=== PATIENT | female | born 1965 | race Caucasian/White ===

== ENCOUNTER 2017-02-21 18:08 | Emergency (ER) | payer OTHER ==
[~2017-02-21] VITALS: Ht 144.8 cm; Wt 81.2 kg
--- NOTE | 2017-02-21 18:42 | RADIOLOGY REPORT ---
EXAMINATION: XR ANKLE, RIGHT CLINICAL INFORMATION: Evaluate for fracture. Pain. COMPARISON: X-ray dated 11/02/2012 TECHNIQUE: AP, lateral, and mortise views of the right ankle. FINDINGS: Normal bony mineralization. No definite evidence of acute fracture or dislocation. Small ossific/calcific densities noted adjacent to the medial malleolus represents an interval change. Mild degenerative changes medial ankle joint. Ankle mortise is preserved. Soft tissue swelling surrounding the ankle joint notably lateral aspect. IMPRESSION: No acute osseous abnormality. Soft tissue swelling notably lateral ankle. Ossific/calcific densities adjacent to the medial malleolus represents an interval change.
--- NOTE | 2017-02-21 20:27 | ED ANKLE/FOOT INJURY COMPLAINT ---
History of Present Illness General Chief Complaint: Foot or Ankle Injury Stated Complaint: R ANKLE INJURY Source: patient Exam Limitations: no limitations Vital Signs & Intake/Output Vital Signs & Intake/Output Vital Signs Date Time Temp Pulse Resp B/P B/P Pulse O2 O2 Flow FiO2 Mean Ox Delivery Rate 02/21 1814 97.6 97 15 172/100 97 Room Air Room Air Allergies Coded Allergies: MDX - Levofloxacin (From [facility]) (SWOLLEN, +VOMITING 02/21/17) Reconcile Medications Metformin HCl 500 MG TABLET 1 TAB PO BID DIABETES (Reported) Triage Note: PT TO ED FOR R ANKLE PAIN S/P WALKING THIS MORNING. PT FELT HER ANKLE GET HOT. DENIES HEARING ANY POPS OR CRACKS. PT HAS +CMS AND IS ABLE TO BEAR WEIGHT. Triage Nurses Notes Reviewed? yes HPI: Patient presents for evaluation of a constant and moderate to severe right ankle pain and swelling that began gradually about 2 weeks ago. The pain has been getting worse since she became quite severe today. Patient states she cannot describe the plane but it does get worse with ambulation and movement. She states occasionally she gets a warm sensation in the area of the right lateral ankle. She denies any known injury. There has been swelling on both sides of the ankle but the outside of the ankle seems worse. No associated redness. No history of arthritis. Past History Travel History Traveled to [place] past 21 day No Medical History Any Pertinent Medical History? see below for history Neurological: NONE EENT: NONE Cardiovascular: NONE Respiratory: asthma Gastrointestinal: NONE Hepatic: NONE Renal: NONE Musculoskeletal: CHRONIC KNEE PAIN Psychiatric: NONE Endocrine: TYPE II DM Blood Disorders: NONE Cancer(s): NONE Surgical History Surgical History: non-contributory Psychosocial History What is your primary language Danish Tobacco Use: Quit >30 days ago ETOH Use: denies use Illicit Drug Use: denies illicit drug use Family History Hx Contributory? No Review of Systems Review of Systems Constitutional: Reports: no symptoms. EENTM: Reports: no symptoms. Respiratory: Reports: no symptoms. Cardiovascular: Reports: no symptoms. GI: Reports: no symptoms. Genitourinary: Reports: no symptoms. Musculoskeletal: Reports: see HPI. Skin: Reports: no symptoms. Neurological/Psychological: Reports: no symptoms. Hematologic/Endocrine: Reports: no symptoms. Immunologic/Allergic: Reports: no symptoms. All Other Systems: Reviewed and Negative Physical Exam Physical Exam Leg/Knee/Thigh Left: SEE BELOW Comments: Gen.: Well-nourished, well-developed, no acute respiratory distress. Head: Normocephalic, atraumatic. Eyes: Normal inspection bilaterally Ears: Normal inspection bilaterally Nose: Normal inspection, nasal cannula in place Throat/mouth : Moist mucosa Neck: Supple, full range of motion, no goiter Heart: Regular rate and rhythm Lungs: Quiet respirations Back: Normal range of motion Extremities: Right ankle: Bilateral mild ankle swelling (lateral greater than medial). No tenderness over the malleoli. No erythema or warmth. No ecchymoses. Tenderness with range of motion of the right ankle. The ankle mortise is otherwise stable. Right foot: Normal sensation and dorsalis pedis pulse. Neurologic: Cranial nerves grossly intact, speech is clear Skin: warm and dry Psychiatric: Calm, cooperative, no apparent delusions or hallucinations Progress Differential Diagnosis: fracture, sprain, contusion, ARTHRITIS Plan of Care: See discharge instructions, raymon wrap placed by me. Comments: Please note that the patient was concerned about her blood pressure and also that she has been having intermittent chest pain episodes recently but adamantly refused evaluation for these symptoms. Departure Departure Disposition: HOME OR SELF CARE Condition: Stable Clinical Impression Primary Impression: Right ankle pain Qualifiers: Chronicity: acute Qualified Code: M25.571 - Pain in right ankle and joints of right foot Secondary Impressions: Right ankle swelling Referrals: UNKNOWN (PCP) Additional Instructions: Raymon wrap as needed to reduce swelling. Elevate your leg for 20 minutes at a time 2-3 times per day. Decrease activities. Follow-up as scheduled with your primary care physician on Friday. Continue the diclofenac twice daily until you 're seen in follow-up. Return if any concerns or sudden worsening. Please note that there might be incidental findings in your evaluation that are unrelated to the current emergency department visit. Please notify your primary care doctor about this emergency department visit in order to obtain and review all of the testing performed so that these incidental findings can be monitored as needed. If you had an x-ray performed, please understand that some fractures may not be seen on the initial set of x-rays. If your symptoms persist you might need a repeat set of x-rays to check for such a fracture. If you had a laceration evaluated, please understand that foreign bodies such as glass or wood may not be visible to the naked eye or on plain x-rays. If the wound becomes red, swollen, increasingly more painful or if there is any drainage from the wound, please have it reevaluated by a physician for the possibility of a retained foreign body. Thank you for choosing the [facility] Emergency Department for your care. It was a pleasure to serve you today. Noe Concepcion M.D. [facility] Departure Forms: Customer Survey General Discharge Information
[2017-02-21 21:00] VITALS: BP 158/96
[2017-02-21] MEDS ORDERED: METFORMIN HCL500 M3 PO (21:01)
== END 2017-02-21 21:03 ==
LOC: ERH 18:08
DX: M25.571 Pain in right ankle and joints of right foot (principal); M25.471 Effusion, right ankle
CPT/HCPCS: 73610-RT

== ENCOUNTER 2017-03-11 14:18 | Emergency (ER) | payer OTHER ==
[~2017-03-11] VITALS: Ht 144.8 cm; Wt 81.6 kg
[~2017-03-11 14:18] MED LIST: METFORMIN HCL500 M3 PO
[2017-03-11 14:23] VITALS: BP 152/101
--- NOTE | 2017-03-11 15:22 | ED GENERAL ADULT ---
History of Present Illness General Chief Complaint: Fall Stated Complaint: BODY PAIN S/P FALL Source: patient Exam Limitations: no limitations Vital Signs & Intake/Output Vital Signs & Intake/Output Vital Signs Date Time Temp Pulse Resp B/P B/P Pulse O2 O2 Flow FiO2 Mean Ox Delivery Rate 03/11 1423 95.8 108 18 152/101 20 Room Air Allergies Coded Allergies: [facility] ([facility]) (SWELLING, VOMITING 03/11/17) Reconcile Medications Albuterol Sulfate 2.5 MG/3 ML (0.083 %) VIAL.NEB 1 Vial INH/MIRIAN PRN ASTHMA ( Reported) Albuterol Sulfate (Proair Hfa) 90 MCG HFA.AER.AD 2 PUF INH PRN ASTHMA ( Reported) Ergocalciferol (Vitamin D2) (Vitamin D2) 50,000 UNIT CAPSULE 1 CAP PO QTUES SUPPLEMENT (Reported) Fluticasone/Vilanterol (Breo Ellipta 100-25 Mcg INH) 100 MCG-25 MCG/DOSE BLST.W.DEV 1 PUFF INH DAILY ASTHMA (Reported) Metformin HCl (Glucophage) 1,000 MG TABLET 1 TAB PO DAILY DM (Reported) Paroxetine Mesylate (Brisdelle) 7.5 MG CAPSULE 1 CAP PO DAILY HOT FLASHES ( Reported) Triage Note: C/O PAIN IN R SIDE OF FACE, R SHOULDER, BOTH LEGS, R RIB PAIN AFTER FALLING AT [facility] 3 HOURS AGO. Triage Nurses Notes Reviewed? yes Onset: Abrupt Duration: hour(s): Timing: recent history HPI: 03/11/17 4:31 PM 51-year-old female presents to the emergency department complaining of right shoulder pain. The patient states she was running in [facility] all and the door was open and she hit the door. Falling down. She complains of right facial pain, right shoulder pain, and bilateral knee pain. She can ambulate without pain. The onset of the symptoms were abrupt, the duration was just today, the severity is significant; as her symptoms required to come to the emergency department for care. She has a past medical history of [id number] diabetes and asthma. Past surgical history for hysterectomy and breast biopsies and lipoma excisions. Past History Travel History Traveled to [place] past 21 day No Medical History Any Pertinent Medical History? see below for history Neurological: NONE EENT: NONE Cardiovascular: NONE Respiratory: asthma Gastrointestinal: NONE Hepatic: NONE Renal: NONE Musculoskeletal: CHRONIC KNEE PAIN Psychiatric: NONE Endocrine: TYPE II DM Blood Disorders: NONE Cancer(s): NONE Surgical History Surgical History: non-contributory Psychosocial History What is your primary language Yi Tobacco Use: Never used ETOH Use: denies use Family History Hx Contributory? No Review of Systems Review of Systems Constitutional: Denies: fever. EENTM: Denies: visual changes. Respiratory: Denies: short of breath. Cardiovascular: Denies: chest pain. GI: Denies: abdominal pain. Genitourinary: Reports: no symptoms. Musculoskeletal: Reports: see HPI. Skin: Denies: rash. Neurological/Psychological: Denies: headache. Hematologic/Endocrine: Denies: bruising, bleeding. Physical Exam Physical Exam General Appearance: well developed/nourished, alert, awake, anxious, mild distress Head: atraumatic, normal appearance Eyes: Bilateral: normal appearance, PERRL, EOMI. Ears, Nose, Throat: normal pharynx, normal ENT inspection Neck: normal inspection, supple, full range of motion Respiratory: normal breath sounds, chest non-tender, no respiratory distress Cardiovascular: regular rate/rhythm Peripheral Pulses: 4+ radial (R), 4+ radial (L) Gastrointestinal: soft, non-tender Back: normal range of motion Extremities: tenderness Neurologic/Psych: no motor/sensory deficits, awake, alert, oriented x 3 Skin: intact, normal color, warm/dry Comments: The patient had mild tenderness to both knees. She did have free range of motion of the knees. She had some decreased range of motion to the right shoulder. Anterior tenderness to the right shoulder. She had some minimal tenderness to the right jaw. X-ray of the right shoulder was negative Core Measures ACS in differential dx? No CVA/TIA Diagnosis: No Severe Sepsis Present: No Septic Shock Present: No Progress Differential Diagnoses I considered the following diagnoses in my evaluation of the patient: [Fracture, dislocation, intracranial injury, intra-abdominal injury] Plan of Care: Orders Procedure Date/time Status XRY-SHOULDER COMPLETE-RIGHT 03/11 1611 Active Initial ED EKG: none Departure Departure Disposition: HOME OR SELF CARE Condition: Stable Clinical Impression Primary Impression: Multiple contusions Referrals: UNKNOWN (PCP) Departure Forms: Customer Survey General Discharge Information Comments X-RAY OF RIGHT SHOULDER NEGATIVE FOR FRACTUTRE Critical Care Note Critical Care Note Critical Care Time: non-applicable
--- NOTE | 2017-03-11 16:36 | RADIOLOGY REPORT ---
EXAMINATION: XR SHOULDER, RIGHT CLINICAL INFORMATION: Right shoulder pain COMPARISON: None TECHNIQUE: AP external rotation, Grashey, scapular Y, and axillary views of the right shoulder. FINDINGS: Normal alignment. No fracture. Laterally downsloping acromion with mild acromioclavicular osteoarthritis. There is a bone island within the humeral head. IMPRESSION: No fracture. Mild acromioclavicular osteoarthritis.
[2017-03-11] MEDS ORDERED: GLUCOPHAGE1000 M1 PO (16:37)
[2017-03-11] MEDS ORDERED: BRISDELLE7.5 M1 PO (16:37)
[2017-03-11] MEDS ORDERED: VITAMIN D250000 UNIT PO (16:38)
[2017-03-11] MEDS ORDERED: ALBUTEROL2.5 MG/3 M INH/SOL (16:38)
[2017-03-11] MEDS ORDERED: PROAIR HFA8.5 GM INH (16:38)
[2017-03-11] MEDS ORDERED: BREO ELLIPTA 11 EACH INH (16:38)
== END 2017-03-11 17:09 ==
LOC: ERH 14:18
DX: T14.8 Other injury of unspecified body region (principal); W19.XXXA Unspecified fall, initial encounter; Y92.243 City hall as the place of occurrence of the external cause; Y93.02 Activity, running
CPT/HCPCS: 73030-RT